=== PATIENT | female | born 1955 | race Caucasian/White ===

== ENCOUNTER 2017-07-26 14:20 | Observation (INO) ==
[2017-07-26] MEDS ORDERED: RACEPINEPHRINE 0.5 ML NEB RESP TX STA (15:55)
[2017-07-26] MEDS ORDERED: RACEPINEPHRINE 0.5 ML NEB RESP TX ONE (15:57)
[2017-07-26] MEDS ORDERED: ONDANSETRON 4 MG/2 ML VIAL IV PRN (17:37)
[2017-07-26] MEDS ORDERED: LACTULOSE 20 GM/30 ML UDCUP PO PRN (17:37)
[2017-07-26] MEDS ORDERED: DOCUSATE SODIUM 100 MG CAPSULE PO PRN (17:37)
[2017-07-26] MEDS ORDERED: ACETAMINOPHEN 325 MG TABLET PO PRN (17:37)
[2017-07-26] MEDS: RACEPINEPHRINE 0.5 ML NEB RESP TX PRN (18:38)
[2017-07-26] MEDS ORDERED: COCAINE SUBSTITUTE 30 ML BOTTLE TOP ONE ×2 (19:01→19:09)
[2017-07-27] MEDS: RACEPINEPHRINE 0.5 ML NEB RESP TX PRN (03:17)
[2017-07-27 05:10] LABS: Basophils % 0.3 % (0.0-0.8); Hemoglobin 14.7 GM/DL (12.0-16.0); Immature Granulocytes % 0.2 %; Immature Granulocytes Absolute 0.01 #; Lymphocytes # 1.9 10*3/uL (1.4-4.0); Lymphocytes % 33.1 % (21.3-54.2); Mean Corpuscular HGB Conc 35.9 GM/DL (32-36); Mean Corpuscular Hemoglobin 30 PG (27-34); Mean Corpuscular Volume 84.2 FL (87-102); Mean Platelet Volume 9.3 FL (9.6-12.0); Monocytes # 1.1 10*3/uL (0.11-0.8); Monocytes % 18.8 % (1.7-12.7); Neutrophils # 2.8 10*3/uL (1.4-7.4); Neutrophils % 47.6 % (38.7-73.9); Platelet Count 384 T/CUMM (130-400); Red Blood Count 4.87 MC/CUMM (3.8-5.5); White Blood Count 5.9 T/CUMM (4-12)
[2017-07-27 05:46] LABS: Calcium 9.6 MG/DL (8.5-10.1); Osmolality,Calculated 262.5 MOS/KG (273-304); Potassium 4.4 MMOL/L (3.5-5.1)
[2017-07-27 05:54] LABS: Giant Platelets Few; Hypochromasia 1+; Lymphocytes 38 % (20-55); Ovalocytes Slight; Platelet Estimate Adequate; Segmented Neutrophils 43 % (50-85); Total Cells Counted 100
[2017-07-27] MEDS: PANTOPRAZOLE 40 MG TABLET PO SCH (08:52)
[2017-07-27] MEDS: methylPREDNISolone SOD SUC 40 MG/1 ML VIAL IV SCH (16:15)
[2017-07-27] MEDS: ASPIRIN EC 81 MG TABLET PO SCH (16:15)
[2017-07-28] MEDS: methylPREDNISolone SOD SUC 40 MG/1 ML VIAL IV SCH (03:11)
[2017-07-28 07:05] LABS: Basophils % 0.2 % (0.0-0.8); Hematocrit 39.2 VOL% (35.7-47.0); Hemoglobin 14.1 GM/DL (12.0-16.0); Immature Granulocytes % 0.2 %; Immature Granulocytes Absolute 0.01 #; Lymphocytes # 1.2 10*3/uL (1.4-4.0); Mean Corpuscular Hemoglobin 30 PG (27-34); Mean Corpuscular Volume 83.8 FL (87-102); Mean Platelet Volume 8.7 FL (9.6-12.0); Monocytes # 0.3 10*3/uL (0.11-0.8); Monocytes % 6.2 % (1.7-12.7); Neutrophils # 3.1 10*3/uL (1.4-7.4); Neutrophils % 67.4 % (38.7-73.9); Platelet Count 330 T/CUMM (130-400); Red Blood Count 4.68 MC/CUMM (3.8-5.5); Red Cell Distribution Width 11.9 % (9.3-17.3); White Blood Count 4.5 T/CUMM (4-12)
[2017-07-28 07:37] LABS: Calcium 9.2 MG/DL (8.5-10.1); Osmolality,Calculated 256.1 MOS/KG (273-304); Potassium 4.4 MMOL/L (3.5-5.1)
[2017-07-28] MEDS ORDERED: NON-FORMULARY MEDICATION (Esomeprazole Magnesium [Nexium] 40 MG) PO PRN (09:37)
[2017-07-28] MEDS: ASPIRIN EC 81 MG TABLET PO SCH (10:02)
[2017-07-28] MEDS: PANTOPRAZOLE 40 MG TABLET PO SCH (10:02)
[2017-07-28] MEDS ORDERED: NAPROXEN 250 MG TABLET PO PRN (10:15)
[2017-07-28 12:38] VITALS: BP 106/72
== END 2017-07-28 14:05 | disposition home or self-care (01) ==
LOC: EDUNIT# → EDBD → N.EDINP 14:20 → N.ED 14:20 → SUATTDRO 15:42 → N.EDINP 17:08 → N.ICU 17:31 → N.5E 07-27 11:33
PROVIDERS: ADMIT Internal Medicine; ATTEND Internal Medicine